=== PATIENT | male | born 1930 | race Two or more races ===

== ENCOUNTER 2017-03-14 21:08 | Inpatient (IN) | payer OTHER ==
--- NOTE | 2017-03-14 21:27 | CPEKG ---
Heart Rate: 93 RR Interval: 645 P-R Interval: 152 QRSD Interval: 126 QT Interval: 376 QTC Interval: 468 P [place]: 52 QRS [place]: -44 T Wave [place]: 21 EKG Severity - ABNORMAL ECG - EKG Impression: SINUS RHYTHM EKG Impression: VENTRICULAR PREMATURE COMPLEX EKG Impression: RIGHT BUNDLE BRANCH BLOCK Electronically Signed By: Nav Velazquez 14-Mar-2017 23:13:29
[2017-03-14] MEDS ORDERED: NS 500 ML IV ONE (21:29)
[2017-03-14] MEDS ORDERED: ASPIRIN 81 MG CHEWABLE TAB PO ONE (21:29)
[2017-03-14 21:43] LABS: % IMMATURE GRANULYOCYTES 0.5 % (0.0-1.1); ABSOLUTE IMMATURE GRANULOCYTES 0.07 10^3/uL (0.00-0.10); ADD DIFF? NO; ADD MORPH? NO; ADD SCAN? NO; ATYPICAL LYMPHOCYTE FLAG 0 (0-99); FRAGMENT RBC FLAG 0 (0-99); HEMATOCRIT 42.4 % (40.0-51.0); HEMOGLOBIN 14.8 g/dL (13.7-17.5); LEFT SHIFT FLG 10 (0-99); LIPEMIA HEMOLYSIS FLAG 90 (0-99); MEAN CELL HEMOGLOBIN 30.1 pg (27.9-34.1); MEAN CELL HEMOGLOBIN CONCENTR. 34.9 g/dL (32.4-36.7); MEAN CELL VOLUME 86.4 fL (81.5-99.8); MEAN PLATELET VOLUME 11.6 fL (8.7-11.7); PLATELET CLUMPS FLAG 20 (0-99); PLATELET COUNT 132 10^3/uL (150-400); RED BLOOD CELL COUNT 4.91 10^6/uL (4.40-6.38)
[2017-03-14 21:52] LABS: INR 1.09 (0.83-1.16)
[2017-03-14 21:53] LABS: APTT 26.6 SEC (23.0-38.0)
[2017-03-14 21:58] LABS: ANION GAP 11 mEq/L (8-16); CALCIUM 9.6 mg/dL (8.5-10.4); CARBON DIOXIDE 22 mEq/l (22-31); CHLORIDE 103 mEq/L (97-110); CREATININE 0.9 mg/dL (0.7-1.3); GLOMERULAR FILTRATION RATE > 60; GLUCOSE 161 mg/dL (70-100); POTASSIUM 3.5 mEq/L (3.5-5.2); SODIUM 136 mEq/L (134-144)
[2017-03-14] MEDS ORDERED: AZITHROMYCIN IV 500 MG in D5W 250 ML IV ONE (22:07)
--- NOTE | 2017-03-14 22:07 | EDPHY ---
H & P Time Seen by Provider: 03/14/17 21:29 HPI/ROS: HPI Chest pain. 86-year-old male by private vehicle with family. Patient has been complaining to his of left-sided and central chest discomfort which she describes as a cramping like pain which comes on intermittently. This has been present since yesterday evening. Worsening today. No previous history of coronary artery disease. No cough. Denies shortness of breath. ROS: Constitutional: No fever, no chills. No weakness. Eyes: No discharge. No changes in vision. ENT: No sore throat. No nasal congestion or rhinorrhea. Respiratory: As above. No shortness of breath. Cardiac: No chest pain, no palpitations. Gastrointestinal: No abdominal pain, no vomiting, no diarrhea. Genitourinary: No hematuria. No dysuria or increased frequency with urination. Musculoskeletal: No back pain. No neck pain. No myalgias or arthralgias. Skin: No rashes. Neurological: No headache. No focal weakness or altered sensation. Past medical history: Appendectomy. No prescription medications. [facility] but has not seen a primary care physician in many years. Social history: Nonsmoker. He lives with his . His daughters are in the room with him. No alcohol. Limited ambulation with a walker. Physical Exam: General Appearance: Alert, no distress. He feels warm. Thin, small in stature. This patient is responding to questions appropriately and in full sentences. This patient appears well-hydrated and well-nourished. Eyes: Pupils equal and round no pallor or injection. No lid edema, erythema or injection. Respiratory: There are no retractions, lungs are clear to auscultation anteriorly with good air movement bilaterally. Cardiovascular: Regular rate and rhythm. No murmur appreciated. Gastrointestinal: Abdomen is soft and nontender, no masses, bowel sounds normal. No focal tenderness at McBurney's point. No Dhaliwal sign. Neurological: Motor sensory function is grossly intact. Cranial nerves are normal. Skin: Warm and dry, no rashes. Musculoskeletal: Neck is supple and nontender. Extremities are symmetrical. All joints range without pain or impingement. Psychiatric: No agitation. No depression. Database: EKG: EKG time is 9:26 p.m.; EKG shows a sinus rhythm with underlying right bundle branch block ventricular rate of 93 The [place], QT intervals are within normal limits. PVC noted. There are no ST-T wave changes indicative of ischemic or injury pattern. No evidence of right heart strain. Interpreted by me. Imaging: Chest x-ray PA and lateral; the cardiac mediastinal silhouette is unremarkable. No evidence of pneumothorax. Probable left upper lobe pneumonia No acute cardiopulmonary disease process noted. Interpreted by me. Procedures: Emergency department course: IV placed. Patient placed on a manager monitoring. He was given 324 mg of chewed aspirin. Vital signs reviewed. Borderline febrile. He was started on IV normal saline with 500 cc to be given over an hour. After I reviewed the results of his chest x-ray and in concert with his leukocytosis, I will treat him for pneumonia. Blood cultures were taken. Was started on IV azithromycin and ceftriaxone in the emergency department for treatment of community-acquired pneumonia. 10:50 p.m., patient re-evaluated. Resting comfortably at this time. Results of diagnostic test discussed with the patient and family. Plan for treatment of pneumonia and admission discussed with them. All of her questions were answered. 10:55 p.m., discussed case with hospitalist. Patient accepted for admission by Dr. Liu. Patient admitted in stable condition. Differential Diagnosis: The differential diagnosis on this patient includes but is not limited to acute coronary syndrome, pneumothorax, pneumonia. This represents a partial list of diagnoses considered. These considerations are based on history, physical exam , past history, reassessment and diagnostic testing. Smoking Status: Never smoked Constitutional: Initial Vital Signs Temperature (C) 37.3 C 03/14/17 21:24 Heart Rate 93 03/14/17 21:24 Respiratory Rate 18 03/14/17 21:24 Blood Pressure 112/61 03/14/17 21:24 O2 Sat (%) 91 L 03/14/17 21:24 O2 Delivery Mode Nasal Cannula O2 (L/minute) 2 Allergies/Adverse Reactions: No Known Allergies Allergy (Unverified 03/14/17 21:37) Home Medications: Medication Instructions Recorded Herbals/Supplements -Info Only 1 ea PO DAILY 03/15/17 Ibuprofen [Motrin (*)] 400 mg PO HS 03/15/17 Multivitamins [Multivitamin (*)] 1 each PO DAILY 03/15/17 [place]-3 Fatty Acids [Fish Oil 1000 1,000 mg PO DAILY 03/15/17 mg (*)] Medical Decision Making - Data Points Laboratory Results: Laboratory Results 03/14/17 21:30 03/14/17 21:30 Medications Given: Discontinued Medications Aspirin (Aspirin) 324 mg PO EDNOW ONE Stop: 03/14/17 21:30 Last Admin: 03/14/17 23:18 Dose: 324 mg Sodium Chloride (Ns) 500 mls @ 1,000 mls/hr IV ONCE ONE PRN Reason: Protocol Stop: 03/14/17 21:58 Last Admin: 03/14/17 23:18 Dose: 500 mls Azithromycin 500 mg/ Dextrose 255 mls @ 255 mls/hr IV EDNOW ONE PRN Reason: Protocol Stop: 03/14/17 23:06 Last Admin: 03/14/17 23:55 Dose: 255 mls Ceftriaxone Sodium/Dextrose (Rocephin 1 Gm (Premix)) 50 mls @ 100 mls/hr IV EDNOW ONE PRN Reason: Protocol Stop: 03/14/17 22:36 Last Admin: 03/14/17 23:10 Dose: 50 mls Azithromycin 500 mg/ Dextrose 255 mls @ 255 mls/hr IV DAILY [place] PRN Reason: Protocol Stop: 04/14/17 08:59 Last Admin: 03/15/17 10:01 Dose: 255 mls Departure - Departure Disposition: [facility] In[facility] Acute Clinical Impression: Chest pain, Pneumonia
[2017-03-14 22:10] LABS: CREATINE KINASE-MB FRACTION 0.37 ng/mL (0-3.19); TROPONIN I < 0.012 ng/mL (0-0.034)
[2017-03-14] MEDS ORDERED: ONDANSETRON 4 MG/2 ML VIAL IVP PRN (23:36)
[2017-03-14] MEDS ORDERED: HYDROCODONE/APAP 5/325 TAB PO PRN (23:36)
[2017-03-14] MEDS ORDERED: ACETAMINOPHEN 325 MG TAB PO PRN (23:36)
[2017-03-14] MEDS ORDERED: ALBUTEROL 3 ML DEYVIAL IH PRN (23:36)
[2017-03-14] MEDS ORDERED: ONDANSETRON DISINTEGRATING 4 MG TAB PO PRN (23:36)
[2017-03-14] MEDS ORDERED: QUEtiapine FUMARATE 25 MG TAB PO PRN (23:42)
[2017-03-14] MEDS ORDERED: NS 1,000 ML IV SCH (23:45)
--- NOTE | 2017-03-15 03:36 | PDGENHP ---
History and Physical - Chief Complaint chest pain - History of Present Illness Patient is an 86 year old male with dementia, hyperlipidemia, osteoarthritis who was brought to the ED by his family for complaint of L sided chest pain. For the past 2-3 days, patient has had decreased appetite, generalized weakness and an intermittent cough. Over the past day, patient has also been complaining of sharp, L lower chest pain, occurring intermittently, not associated with nausea, vomiting, palpitations. Family has also noted that he appeared somewhat more confused than his baseline today, so they brought him to the ED for further evaluation. On arrival to the ED, patient was afebrile, hemodynamically stable, slightly hypoxic on room air. Labs revealed leukocytosis, normal BMP, negative initial troponin. EKG was nonischemic. CXR then revealed left upper lobe infiltrate concerning for acute pneumonia. He was cultured, given IVF hydration and initiated on antibiotics. History Information - Allergies/Home Medication List Allergies/Adverse Reactions: No Known Allergies Allergy (Unverified 03/14/17 21:37) Home Medications: NK [No Known Home Meds] 03/14/17 [Last Taken Unknown] I have personally reviewed and updated: family history, medical history, social history, surgical history - Past Medical History Additional medical history: Dementia. Hyperlipidemia. Osteoarthritis - Surgical History Additional surgical history: Appendectomy - Family History Positive for: non-pertinent - Social History Smoking Status: Never smoked Alcohol Use: None Drug Use: None Additional social history: Patient originally from [place], lives in [place] with his , two daughters live nearby. Review of Systems ROS: 10pt was reviewed & negative except for what was stated in HPI & below Physical Exam Temp Pulse Resp BP Pulse Ox 37.7 C 74 16 123/61 H 96 03/15/17 00:31 03/15/17 00:31 03/15/17 00:31 03/15/17 00:31 03/15/17 00:31 O2 (L/minute) 2 Constitutional: no apparent distress, appears nourished, not in pain Eyes: PERRL, anicteric sclera, EOMI Ears, Nose, Mouth, Throat: moist mucous membranes, hearing normal, ears appear normal, no oral mucosal ulcers Cardiovascular: regular rate and rhythym, no murmur, rub, or gallop, pulses symmetric bilaterally, No JVD, No edema Peripheral Pulses: 2+: dorsalis-pedis (R), dorsalis-pedis (L) Respiratory: no respiratory distress, no rales or rhonchi, clear to auscultation Gastrointestinal: normoactive bowel sounds, soft, non-tender abdomen, no palpable masses, No tenderness, No guarding, No rebound Genitourinary: no bladder fullness, no bladder tenderness Skin: warm, normal color, no rashes or abrasions, no fluctuance, no induration, No mottled Musculoskeletal: full muscle strength, no muscle tenderness, normal joint ROM, no joint effusions Neurologic: AAOx3, sensation intact bilaterally, CN II-XII Intact, No weakness, No numbness, No facial droop Psychiatric: interacting appropriately, not anxious, not encephalopathic, thought process linear Lab Data & Imaging Review 03/14/17 21:30 03/14/17 21:30 WBC 14.39 10^3/uL (3.80-9.50) H 03/14/17 21:30 RBC 4.91 10^6/uL (4.40-6.38) 03/14/17 21:30 Hgb 14.8 g/dL (13.7-17.5) 03/14/17 21:30 Hct 42.4 % (40.0-51.0) 03/14/17 21:30 MCV 86.4 fL (81.5-99.8) 03/14/17 21:30 MCH 30.1 pg (27.9-34.1) 03/14/17 21:30 MCHC 34.9 g/dL (32.4-36.7) 03/14/17 21:30 RDW 13.0 % (11.5-15.2) 03/14/17 21:30 Plt Count 132 10^3/uL (150-400) L 03/14/17 21:30 MPV 11.6 fL (8.7-11.7) 03/14/17 21:30 Neut % (Auto) 85.0 % (39.3-74.2) H 03/14/17 21:30 Lymph % (Auto) 6.5 % (15.0-45.0) L 03/14/17 21:30 [place] % (Auto) 7.3 % (4.5-13.0) 03/14/17 21:30 Eos % (Auto) 0.3 % (0.6-7.6) L 03/14/17 21:30 Baso % (Auto) 0.4 % (0.3-1.7) 03/14/17 21:30 Nucleat RBC Rel Count 0.0 % (0.0-0.2) 03/14/17 21:30 Absolute Neuts (auto) 12.24 10^3/uL (1.70-6.50) H 03/14/17 21:30 Absolute Lymphs (auto) 0.93 10^3/uL (1.00-3.00) L 03/14/17 21:30 Absolute Monos (auto) 1.05 10^3/uL (0.30-0.80) H 03/14/17 21:30 Absolute Eos (auto) 0.04 10^3/uL (0.03-0.40) 03/14/17 21:30 Absolute Basos (auto) 0.06 10^3/uL (0.02-0.10) 03/14/17 21:30 Absolute Nucleated RBC 0.00 10^3/uL (0-0.01) 03/14/17 21:30 Immature Gran % 0.5 % (0.0-1.1) 03/14/17 21:30 Immature Gran # 0.07 10^3/uL (0.00-0.10) 03/14/17 21:30 PT 14.0 SEC (12.0-15.0) 03/14/17 21:30 INR 1.09 (0.83-1.16) 03/14/17 21:30 APTT 26.6 SEC (23.0-38.0) 03/14/17 21:30 Sodium 136 mEq/L (134-144) 03/14/17 21:30 Potassium 3.5 mEq/L (3.5-5.2) 03/14/17 21:30 Chloride 103 mEq/L (97-110) 03/14/17 21:30 Carbon Dioxide 22 mEq/l (22-31) 03/14/17 21:30 Anion Gap 11 mEq/L (8-16) 03/14/17 21:30 BUN 20 mg/dL (7-23) 03/14/17 21:30 Creatinine 0.9 mg/dL (0.7-1.3) 03/14/17 21:30 Estimated GFR > 60 03/14/17 21:30 Glucose 161 mg/dL (70-100) H 03/14/17 21:30 Calcium 9.6 mg/dL (8.5-10.4) 03/14/17 21:30 Creatine Kinase 26 IU/L (0-224) 03/14/17 21:30 CK-MB (CK-2) Fraction 0.37 ng/mL (0-3.19) 03/14/17 21:30 Troponin I < 0.012 ng/mL (0-0.034) 03/14/17 21:30 Visualized and Interpreted Chest x-ray results: Yes Chest X-Ray results: infiltrate (L upper lobe infiltrate) Visualized and Interpreted EKG results: Yes EKG additional interpertation: RBBB, sinus rhythm Assessment & Plan Assessment: Patient is an 86 year old with dementia, HLD who presents to the ED with complaint of chest pressure, cough and generalized weakness. ED evaluation reveals nonischemic EKG, negative initial troponin and CXR concerning for upper lobe infiltrate consistent with acute community acquired pneumonia. Plan: # acute hypoxic respiratory failure Patient slightly hypoxic on room air, CXR reveals acute infiltrate in ODIN and leukocytosis on labs is consistent with acute community acquired pneumonia. Will continue antibiotics, supplemental O2 prn. - f/u blood cultures, obtain sputum culture - check legionella, strep antigen - cont ceftriaxone/azithromycin # chest pain Patient's description of the pain is atypical for ACS, likely related to above process. Initial troponin and EKG are also nonischemic. Will continue to monitor serial troponins, EKG and check TTE in AM. # acute encephalopathy, chronic dementia Patient's family feel patient has become somewhat more confused over the past 1 day. Likely metabolic encephalopathy related to acute infection. No focal deficits. Will monitor MS, obtain PT/OT and continue treatment for acute infection. # dispo: admit to inpatient service for likely > 2MN stay # gen: regular diet DVT ppx: lovenox Full code
[2017-03-15] MEDS ORDERED: AZITHROMYCIN IV 500 MG in D5W 250 ML IV SCH (09:00)
--- NOTE | 2017-03-15 09:52 | CPEKG ---
Heart Rate: 63 RR Interval: 952 P-R Interval: 172 QRSD Interval: 130 QT Interval: 436 QTC Interval: 447 P [place]: 60 QRS [place]: 30 T Wave [place]: 49 EKG Severity - ABNORMAL ECG - EKG Impression: SINUS RHYTHM EKG Impression: RIGHT BUNDLE BRANCH BLOCK Electronically Signed By: Tawanda Medina 15-Mar-2017 16:48:06
[2017-03-15] MEDS: ENOXAPARIN 40 MG/0.4 ML SYR SC SCH (10:01)
[2017-03-15 15:15] LABS: % IMMATURE GRANULYOCYTES 0.3 % (0.0-1.1); ABSOLUTE IMMATURE GRANULOCYTES 0.03 10^3/uL (0.00-0.10); ADD DIFF? NO; ADD MORPH? NO; ADD SCAN? NO; ATYPICAL LYMPHOCYTE FLAG 10 (0-99); FRAGMENT RBC FLAG 0 (0-99); HEMATOCRIT 35.9 % (40.0-51.0); HEMOGLOBIN 12.4 g/dL (13.7-17.5); LEFT SHIFT FLG 0 (0-99); LIPEMIA HEMOLYSIS FLAG 90 (0-99); MEAN CELL HEMOGLOBIN 29.9 pg (27.9-34.1); MEAN CELL HEMOGLOBIN CONCENTR. 34.5 g/dL (32.4-36.7); MEAN CELL VOLUME 86.5 fL (81.5-99.8); MEAN PLATELET VOLUME 12.1 fL (8.7-11.7); PLATELET CLUMPS FLAG 0 (0-99); PLATELET COUNT 106 10^3/uL (150-400); RED BLOOD CELL COUNT 4.15 10^6/uL (4.40-6.38)
--- NOTE | 2017-03-15 15:21 | HOSPPROG ---
Hospitalist Progress Note Assessment/Plan: * possible community-acquired pneumonia * He did have elevated white blood cell count * Repeat chest x-ray personally viewed interpreted favoring atelectasis per Radiology * Will continue antibiotics go and repeat CBC in the morning * chest pain * Resolved * EKG personally viewed interpreted shows right bundle branch block * Will check another troponin in the morning but since he is asymptomatic doubt acute coronary syndrome * severe dementia Subjective: Chest pain is resolved. No shortness of breath Objective: Vital Signs Temp Pulse Resp BP Pulse Ox 36.7 C 62 20 124/54 H 91 L 03/15/17 08:00 03/15/17 08:00 03/15/17 08:00 03/15/17 08:00 03/15/17 08:00 03/14/17 03/15/17 03/16/17 05:59 05:59 05:59 Intake Total 1050 Balance 1050 PT 14.0 SEC (12.0-15.0) 03/14/17 21:30 INR 1.09 (0.83-1.16) 03/14/17 21:30 - Physical Exam Constitutional: no apparent distress, appears nourished, not in pain Eyes: anicteric sclera, EOMI Ears, Nose, Mouth, Throat: moist mucous membranes, hearing normal, ears appear normal Cardiovascular: regular rate and rhythym, no murmur, rub, or gallop Respiratory: no respiratory distress, no rales or rhonchi, clear to auscultation Gastrointestinal: normoactive bowel sounds, soft, non-tender abdomen, no palpable masses Skin: warm Neurologic: AAOx3 Psychiatric: interacting appropriately, not anxious, not encephalopathic, thought process linear ICD10 Worksheet Patient Problems: Problems Problem Status Onset Chest pain Acute Pneumonia Acute
[2017-03-15 15:28] LABS: INR 1.2 (0.83-1.16); PROTIME(PATIENT) 15.2 SEC (12.0-15.0)
[2017-03-15 15:29] LABS: APTT 39.4 SEC (23.0-38.0)
[2017-03-15 15:44] LABS: ANION GAP 7 mEq/L (8-16); CALCIUM 8.5 mg/dL (8.5-10.4); CARBON DIOXIDE 22 mEq/l (22-31); CHLORIDE 107 mEq/L (97-110); CREATININE 0.7 mg/dL (0.7-1.3); GLOMERULAR FILTRATION RATE > 60; GLUCOSE 85 mg/dL (70-100); MAGNESIUM 1.9 mg/dL (1.6-2.3); POTASSIUM 3.6 mEq/L (3.5-5.2); SODIUM 136 mEq/L (134-144)
[2017-03-15 15:55] LABS: TROPONIN I < 0.012 ng/mL (0-0.034)
[2017-03-15] MEDS ORDERED: IBUPROFEN 200 MG TAB PO SCH (21:00)
[2017-03-16 06:42] LABS: % IMMATURE GRANULYOCYTES 0.4 % (0.0-1.1); ABSOLUTE IMMATURE GRANULOCYTES 0.03 10^3/uL (0.00-0.10); ADD DIFF? NO; ADD MORPH? NO; ADD SCAN? NO; ATYPICAL LYMPHOCYTE FLAG 0 (0-99); FRAGMENT RBC FLAG 0 (0-99); HEMATOCRIT 38.4 % (40.0-51.0); HEMOGLOBIN 13.1 g/dL (13.7-17.5); LEFT SHIFT FLG 0 (0-99); LIPEMIA HEMOLYSIS FLAG 90 (0-99); MEAN CELL HEMOGLOBIN 29.9 pg (27.9-34.1); MEAN CELL HEMOGLOBIN CONCENTR. 34.1 g/dL (32.4-36.7); MEAN CELL VOLUME 87.7 fL (81.5-99.8); MEAN PLATELET VOLUME 11.9 fL (8.7-11.7); PLATELET CLUMPS FLAG 0 (0-99); PLATELET COUNT 114 10^3/uL (150-400); RED BLOOD CELL COUNT 4.38 10^6/uL (4.40-6.38)
[2017-03-16 07:09] LABS: ALANINE AMINOTRANSFERASE 27 IU/L (21-72); ALBUMIN 2.8 g/dL (3.5-5.0); ALKALINE PHOSPHATASE 65 IU/L (38-126); ANION GAP 9 mEq/L (8-16); ASPARTATE AMINOTRANSFERASE 23 IU/L (17-59); BILIRUBIN,TOTAL 0.5 mg/dL (0.1-1.4); CALCIUM 9.1 mg/dL (8.5-10.4); CARBON DIOXIDE 22 mEq/l (22-31); CHLORIDE 107 mEq/L (97-110); CREATININE 0.8 mg/dL (0.7-1.3); GLOMERULAR FILTRATION RATE > 60; GLUCOSE 86 mg/dL (70-100); POTASSIUM 3.7 mEq/L (3.5-5.2); SODIUM 138 mEq/L (134-144); TOTAL PROTEIN 5.9 g/dL (6.3-8.2)
[2017-03-16 08:16] VITALS: PULSE 66; RESP 16; TEMP 97.3; O2SAT 95
[2017-03-16 08:17] VITALS: BP 133/89
[2017-03-16] MEDS ORDERED: AZITHROMYCIN 250 MG TAB PO SCH (09:00)
[2017-03-16] MEDS: ENOXAPARIN 40 MG/0.4 ML SYR SC SCH (09:55)
--- NOTE | 2017-03-16 10:53 | GDS ---
[f rep st] DISCHARGE SUMMARY DISCHARGE DIAGNOSES: 1. Left lower lobe pneumonia. 2. Chest pain secondary to above. 3. Dementia. HISTORY: This is an 86-year-old male who came in with chest pain. HOSPITAL COURSE: The patient had a nonischemic EKG and negative troponins. His initial chest x-ray suggested left lower lobe pneumonia, and repeat chest x-ray, even though being read as atelectasis, also suggests pneumonia. Clinically, he seems to have pneumonia. He did have a little bit of coug h and had some crackles in the left base. He has improved with antibiotics, and his white count has normalized. He will be discharged home on several more days to complete a 7-day course of antibiot ics. DISPOSITION: Home. DISCHARGE MEDICATIONS: He is to resume his home medicines. In addition, he will be given Omnicef a nd azithromycin for 4 more days. FOLLOWUP INSTRUCTIONS: He is instructed to follow up with his primary care doctor as needed. TIME SPENT: Greater than 30 minutes was spent on discharge. /[id number]/MODL
== END 2017-03-16 12:13 | disposition home or self-care (01) | DRG 193 ==
LOC: F3E 03-15 00:20
PROVIDERS: ADMIT Internal Medicine; ATTEND Internal Medicine
DX: J18.9 Pneumonia, unspecified organism (principal); J96.01 Acute respiratory failure with hypoxia; G93.41 Metabolic encephalopathy; F03.90 Unspecified dementia, unspecified severity, without behavioral disturbance, psychotic disturbance, mood disturbance, and anxiety
CPT/HCPCS: 96365; J0456; J0696; J1650

== ENCOUNTER 2017-10-20 12:53 | Inpatient (IN) | payer SELFPAY ==
[2017-10-20] MEDS ORDERED: NS 1,000 ML IV ONE (13:04)
--- NOTE | 2017-10-20 13:15 | CPEKG ---
Heart Rate: 110 RR Interval: 545 P-R Interval: 132 QRSD Interval: 108 QT Interval: 364 QTC Interval: 493 P [place]: 80 QRS [place]: -68 T Wave [place]: 17 EKG Severity - ABNORMAL ECG - EKG Impression: SINUS TACHYCARDIA EKG Impression: IRBBB AND LPFB EKG Impression: LOW VOLTAGE IN FRONTAL LEADS EKG Impression: BORDERLINE PROLONGED QT INTERVAL Electronically Signed By: Nav Velazquez 20-Oct-2017 15:49:32
--- NOTE | 2017-10-20 13:18 | EDPHY ---
H & P HPI/ROS: HPI Weakness. 87-year-old male by ambulance from home. He is accompanied by his 2 daughters who are power of plug saw operator. Daughter's report the patient has been getting very weak unable to eat or drink for the last several days to 1 week. They report that he has been bed ridden. They carry him from place to place with in their house. He has been in the same depends diaper for at least the last 3-4 days. He was seen at [facility] in the recent past and he and his daughters were told that there was nothing seriously wrong with him. They deny that he has any significant chronic underlying disease. The patient is not responding to questioning. He is staring straight ahead. He will track you intermittently. History and review of systems obtained through daughters. ROS: Constitutional: No fever, no chills. As above. Eyes: No discharge. No changes in vision. ENT: No sore throat. No nasal congestion or rhinorrhea. Respiratory: No cough. No shortness of breath. Cardiac: No chest pain, no palpitations. Gastrointestinal: No abdominal pain, no vomiting, no diarrhea. Anorexia. Genitourinary: No hematuria. No dysuria or increased frequency with urination. Musculoskeletal: No back pain. No neck pain. No myalgias or arthralgias. Skin: No rashes. Neurological: No headache. No focal weakness or altered sensation. Past medical history: Dementia, hyperlipidemia, osteoarthritis. Admitted to our hospital in mid February of 2017 for pneumonia. [facility]. Social history: Nonsmoker. From [place] originally. Has been living with his 2 daughters. No alcohol. Thai-speaking only. Physical Exam: General Appearance: Awake, noncommunicative, cachectic. Very thin and wasted. Eyes: Pupils equal and round no pallor or injection. Cataract bilaterally. No lid edema, erythema or injection. ENT, Mouth: Mucous membranes are moist. No thrush. The pharyngeal tissues are unremarkable. No edema or swelling. No asymmetry suggestive of abscess. No erythema or exudates. Respiratory: Moderate contractions, lungs are clear to auscultation anteriorly with good air movement bilaterally. No tachypnea. Cardiovascular: Regular rate and rhythm. Heart sounds distant. Tachycardia. No murmur appreciated. Gastrointestinal: Abdomen is soft and nontender, no masses, bowel sounds normal. No focal tenderness at McBurney's point. No Dhaliwal sign. Neurological: Motor sensory function is grossly intact has been baseline according to the daughters. However, the patient does not follow commands. Cranial nerves appear grossly normal. Skin: Warm and dry, no rashes. Skin ulcerations noted over sacrum and left iliac crest. Musculoskeletal: Neck is supple and nontender. Extremities are symmetrical. All joints range without apparent pain or impingement. Psychiatric: No agitation. No depression. Database: EKG: EKG time is 1:13 p.m.; EKG shows a sinus tachycardia with a ventricular rate of 110. Right bundle branch block noted. Left posterior fascicular block noted. Low voltage. The CO, QT intervals are within normal limits. There are no ST-T wave changes indicative of ischemic or injury pattern. No evidence of right heart strain. Interpreted by me. Imaging: Chest x-ray AP portable; the cardiac mediastinal silhouette is unremarkable. Diffuse airway disease, patchy bilateral lower lobe pneumonia. No other acute cardiopulmonary disease process noted. Interpreted by me. CT scan of head without contrast; age-related changes only, sinusitis and cerumen in ear canals. Results were discussed with staff radiologist Dr. Yifan Stern. Procedures: Emergency department course: IV placed x2, vital signs reviewed, blood pressure 94/70, heart rate 112, pulse oximetry 94% on 5 L by face mask oxygen. Axillary temperature 37.7degrees. Valencia catheter will be placed. He will be started on IV normal saline with 1 L to be given initially. Sepsis protocol initiated. 1:10 p.m., with barrel filler, myself and his nurse Maira communicated with his 2 daughters who are present at the bedside regarding this patient's care. Care measures including CPR, intubation and central line placement were discussed in detail with them with her full understanding. They request the patient be a DNR and DNI. I explained to them that we would do testing for infection, treat him medically and keep him comfortable. In my professional opinion they fully understood the contents and meeting of this conversation. 1:35 p.m., patient's initial venous lactate 4.7, severe sepsis protocol initiated with 30 mL/kilogram fluid bolus and repeat lactate. 1:50 p.m., chest x-ray evaluated. Patient started on all IV ceftriaxone and IV azithromycin for treatment community-acquired pneumonia. This will cover your track infection pathogens as well. Patient significantly high per day treatment. This is being treated with volume repletion as above with severe sepsis protocol. 3:00 p.m., patient was re-evaluated. Vital signs currently blood pressure 119/ 66, heart rate 96, pulse oximetry 94% on 5 L by face mask. Valencia catheter in place. Initial output nothing. He is now making urine. He arouses to voice. He has received his antibiotics. I am starting him on additional 1 L of IV normal saline secondary to his severe hypernatremia and dehydration. He has already received a 30 mL/kilogram fluid bolus. Hospitalist paged. 3:10 p.m., spoke with on-call hospitalist. Patient accepted for admission by Dr. Bill. Case discussed in detail with Dr. Bill. 4:00 p.m., Dr. Bill is at the bedside with the patient. Patient admitted to the step-down unit in stable condition. Differential Diagnosis: The differential diagnosis on this patient includes but is not limited to urosepsis, pneumonia, chronic disease, AIDS, malignancy. This represents a partial list of diagnoses considered. These considerations are based on history , physical exam, past history, reassessment and diagnostic testing. Smoking Status: Never smoked Constitutional: Initial Vital Signs Temperature (C) 37.7 C 10/20/17 13:16 Heart Rate 114 H 10/20/17 13:16 Respiratory Rate 22 H 10/20/17 13:16 Blood Pressure 94/70 L 10/20/17 13:16 O2 Sat (%) 81 L 10/20/17 13:16 O2 Delivery Mode Oxymask Allergies/Adverse Reactions: No Known Allergies Allergy (Unverified 03/14/17 21:37) Home Medications: Medication Instructions Recorded Ibuprofen [Motrin (*)] 200 mg PO TID PRN 10/20/17 Medical Decision Making - Diagnostics Imaging Results: Imaging Impressions Chest X-Ray 10/20/17 13:05 Impression: Airways disease with suspect superimposed patchy bilateral lower lung zone pneumonia. If confirmation of pneumonia is important, then consider noncontrast chest CT. Head CT 10/20/17 14:14 Impression: 1. Cerebral atrophy without any acute brain parenchymal abnormality identified. 2. Acute left maxillary sinusitis 3. Cerumen in the right external auditory canal 4. Nonacute mass in the posterior left nasal cavity. Results discussed with Dr. Velazquez at 3:19 PM General information for patients regarding this examination can be found at [email or web address]. If you have questions or comments about this report, please contact me at [phone] (hospital) or [phone] (cell). - Data Points Laboratory Results: Laboratory Results 10/20/17 13:02 10/20/17 12:45 10/20/17 10/20/17 10/20/17 15:00 15:00 13:02 WBC RBC Hgb POC Hgb Hct POC Hct MCV MCH MCHC RDW Plt Count MPV Neut % (Auto) Lymph % (Auto) [place] % (Auto) Eos % (Auto) Baso % (Auto) Nucleat RBC Rel Count Absolute Neuts (auto) Absolute Lymphs (auto) Absolute Monos (auto) Absolute Eos (auto) Absolute Basos (auto) Absolute Nucleated RBC Immature Gran % Seg Neutrophils % Band Neutrophils % Lymphocytes % Monocytes % Immature Gran # Absolute Seg Neuts Absolute Band Neuts Absolute Lymphocytes Absolute Monocytes RBC/WBC/PLT Morphology Platelet Estimate PT 16.2 SEC H SEC (12.0-15.0) INR 1.28 H (0.83-1.16) APTT 27.5 SEC SEC (23.0-38.0) VBG Lactic Acid 4.0 mmol/L H mmol/L Pending (0.7-2.1) POC Sodium Sodium POC Potassium Potassium POC Chloride Chloride Carbon Dioxide Anion Gap POC BUN BUN Creatinine POC Creatinine Estimated GFR Glucose POC Glucose Calcium Total Bilirubin Troponin I 10/20/17 10/20/17 10/20/17 13:02 13:02 12:52 WBC 8.23 10^3/uL 10^3/uL (3.80-9.50) RBC 5.55 10^6/uL 10^6/uL (4.40-6.38) Hgb 17.0 g/dL g/dL (13.7-17.5) POC Hgb 17.0 gm/dL gm/dL (13.7-17.5) Hct 53.7 % H % (40.0-51.0) POC Hct 50 % % (40-51) MCV 96.8 fL fL (81.5-99.8) MCH 30.6 pg pg (27.9-34.1) MCHC 31.7 g/dL L g/dL (32.4-36.7) RDW 17.0 % H % (11.5-15.2) Plt Count 130 10^3/uL L 10^3/uL (150-400) MPV 14.3 fL H fL (8.7-11.7) Neut % (Auto) 86.7 % H % (39.3-74.2) Lymph % (Auto) 7.3 % L % (15.0-45.0) [place] % (Auto) 5.1 % % (4.5-13.0) Eos % (Auto) 0.0 % L % (0.6-7.6) Baso % (Auto) 0.7 % % (0.3-1.7) Nucleat RBC Rel Count 0.0 % % (0.0-0.2) Absolute Neuts (auto) 7.13 10^3/uL H 10^3/uL (1.70-6.50) Absolute Lymphs (auto) 0.60 10^3/uL L 10^3/uL (1.00-3.00) Absolute Monos (auto) 0.42 10^3/uL 10^3/uL (0.30-0.80) Absolute Eos (auto) 0.00 10^3/uL L 10^3/uL (0.03-0.40) Absolute Basos (auto) 0.06 10^3/uL 10^3/uL (0.02-0.10) Absolute Nucleated RBC 0.00 10^3/uL 10^3/uL (0-0.01) Immature Gran % 0.2 % % (0.0-1.1) Seg Neutrophils % 45 % % Band Neutrophils % 39 % % Lymphocytes % 11 % % Monocytes % 5 % % Immature Gran # 0.02 10^3/uL 10^3/uL (0.00-0.10) Absolute Seg Neuts 3.70 10^/uL 10^/uL (1.70-6.50) Absolute Band Neuts 3.21 10^3/uL H 10^3/uL (0.00-0.70) Absolute Lymphocytes 0.91 10^3/uL L 10^3/uL (1.00-3.00) Absolute Monocytes 0.41 10^3/uL 10^3/uL (0.30-0.80) RBC/WBC/PLT Morphology NORMAL (NORMAL) Platelet Estimate DECREASED L (ADEQ) PT INR APTT VBG Lactic Acid 4.7 mmol/L H mmol/L (0.7-2.1) POC Sodium 171 mEq/L H* mEq/L (135-145) Sodium POC Potassium 3.8 mEq/L mEq/L (3.3-5.0) Potassium POC Chloride 130 mEq/L H mEq/L (97-110) Chloride Carbon Dioxide Anion Gap POC BUN 49 mg/dL H mg/dL (7-23) BUN Creatinine POC Creatinine 1.8 mg/dL H mg/dL (0.7-1.3) Estimated GFR Glucose POC Glucose 187 mg/dL H mg/dL (70-100) Calcium Total Bilirubin Troponin I 10/20/17 12:45 WBC RBC Hgb POC Hgb Hct POC Hct MCV MCH MCHC RDW Plt Count MPV Neut % (Auto) Lymph % (Auto) [place] % (Auto) Eos % (Auto) Baso % (Auto) Nucleat RBC Rel Count Absolute Neuts (auto) Absolute Lymphs (auto) Absolute Monos (auto) Absolute Eos (auto) Absolute Basos (auto) Absolute Nucleated RBC Immature Gran % Seg Neutrophils % Band Neutrophils % Lymphocytes % Monocytes % Immature Gran # Absolute Seg Neuts Absolute Band Neuts Absolute Lymphocytes Absolute Monocytes RBC/WBC/PLT Morphology Platelet Estimate PT INR APTT VBG Lactic Acid POC Sodium Sodium 173 mEq/L H* mEq/L (135-145) POC Potassium Potassium 4.0 mEq/L mEq/L (3.5-5.2) POC Chloride Chloride 130 mEq/L H mEq/L (97-110) Carbon Dioxide 22 mEq/l mEq/l (22-31) Anion Gap 21 mEq/L H mEq/L (8-16) POC BUN BUN 52 mg/dL H mg/dL (7-23) Creatinine 1.7 mg/dL H mg/dL (0.7-1.3) POC Creatinine Estimated GFR 38 Glucose 183 mg/dL H mg/dL (70-100) POC Glucose Calcium 10.0 mg/dL mg/dL (8.5-10.4) Total Bilirubin 1.8 mg/dL H mg/dL (0.1-1.4) Troponin I 0.094 ng/mL H ng/mL (0.000-0.034) Medications Given: Discontinued Medications Sodium Chloride (Ns) 1,000 mls @ 0 mls/hr IV ONCE ONE; Wide Open PRN Reason: Protocol Stop: 10/20/17 13:05 Last Admin: 10/20/17 13:31 Dose: 1,000 mls Sodium Chloride (Ns) 1,200 mls @ 2,400 mls/hr 30 ml/kg infuse over 30 min ( 1200 ml) IV EDNOW ONE PRN Reason: Protocol Stop: 10/20/17 14:05 Last Admin: 10/20/17 14:21 Dose: 1,200 mls Azithromycin 500 mg/ Dextrose 255 mls @ 255 mls/hr IV EDNOW ONE PRN Reason: Protocol Stop: 10/20/17 14:47 Last Admin: 10/20/17 14:20 Dose: 255 mls Ceftriaxone Sodium 2 gm/ (Sterile Water) 20 mls @ 300 mls/hr IV EDNOW ONE PRN Reason: Protocol Stop: 10/20/17 13:51 Last Admin: 10/20/17 14:18 Dose: 20 mls Point of Care Test Results: 10/20/17 12:52 POC Sodium 171 H* POC Potassium 3.8 POC Chloride 130 H POC BUN 49 H POC Creatinine 1.8 H POC Glucose 187 H Departure - Departure Disposition: [facility] Inpatient Acute Clinical Impression: Sepsis, Pneumonia, Hypernatremia, Dehydration, Renal insufficiency, Elevated troponin, DNR no code (do not resuscitate) Condition: Fair
[2017-10-20 13:36] LABS: PLATELET COUNT 130 10^3/uL (150-400)
[2017-10-20] MEDS ORDERED: NS 1,200 ML IV ONE (13:36)
[2017-10-20 13:47] LABS: INR 1.28 (0.83-1.16); PROTIME(PATIENT) 16.2 SEC (12.0-15.0)
[2017-10-20] MEDS ORDERED: AZITHROMYCIN IV 500 MG in D5W 250 ML IV ONE (13:48)
[2017-10-20] MEDS ORDERED: cefTRIAXone 2 GM in STERILE WATER INJ 20 ML IV ONE (13:48)
[2017-10-20] MEDS ORDERED: ONDANSETRON 4 MG/2 ML VIAL IVP PRN (16:11)
[2017-10-20] MEDS ORDERED: ONDANSETRON DISINTEGRATING 4 MG TAB PO PRN (16:11)
[2017-10-20] MEDS ORDERED: ACETAMINOPHEN 325 MG TAB PO PRN (16:11)
[2017-10-20] MEDS ORDERED: morphINE 10 MG/0.5 ML UDSYR PO PRN (16:13)
[2017-10-20] MEDS ORDERED: SCOPOLAMINE HYDROBROMIDE 1 MG/3 DAYS PATCH TD PRN (16:13)
--- NOTE | 2017-10-20 16:20 | ASMTCMCOM ---
CM Note CM Note Notes: Pt presented to the ER today via ambulance after one week of being bed ridden, with increasing weakness. Pt is Uzbek speaking only and lives with his two daughters. Per MD notes, the daughters are his MDPOA's. The pt is originally from [place]. Pt is being admitted to the PCU for further workup and evaluation. Discharge needs remain to be determined at this time. CM will cont to follow. Current Discharge Plan: To be determined Date Signed: 10/20/2017 04:19 PM Electronically Signed By:Noa Isbell RN
--- NOTE | 2017-10-20 17:29 | GHP ---
[f rep st] HISTORY AND PHYSICAL DATE OF ADMISSION: 10/20/2017 CHIEF COMPLAINT: Altered mental status. Weakness. HISTORY OF PRESENT ILLNESS: This is an 87-year-old male who has a history of dementia, but no other significant medical problems. According to his family, over the last several months he has been decl ining. He has been getting weaker. He is not eating. He has been losing weight. He is becoming mo re confused. Over the last several days, he has stopped eating essentially, and has had some cough w ith phlegm. His mental status has also decreased, where he is unable to even register his family. Anthony paiz has been essentially bedridden for over a week. REVIEW OF SYSTEMS: Limited review of systems is obtained secondary to patient's altered mental statu s. PAST MEDICAL HISTORY: Dementia, hyperlipidemia, osteoarthritis. SOCIAL HISTORY: No smoking. Lives with his daughters. FAMILY HISTORY: Both parents are . PHYSICAL EXAMINATION: VITAL SIGNS: Afebrile, blood pressure is 116/84, heart rate 84, respiratory r ates in the upper 30s, 81% on room air. GENERAL: The patient is cachectic, chronically ill-appearin g, slightly tachypneic. HEENT: Dry mucous membranes. NECK: Supple. No thyromegaly. LUNGS: Poor effort. Scattered rhonchi bilaterally. No wheezes. CARDIOVASCULAR: Regular rate and rhythm. No murmurs or gallops. ABDOMEN: Scaphoid, quite thin, soft, nontender. EXTREMITIES: No clubbing, cya nosis, or edema. SKIN: Without rash. Dry, intact. NEURO: Tracks a little bit with his eyes, othe rwise not very responsive. LABS: Lactate is elevated at 4.7. White count is normal. Chemistry shows a sodium of 173, creatini ne 1.7, with baseline 0.8. Troponin is elevated at 0.094. Chest x-ray shows probable patchy bilater al pneumonia. ASSESSMENT: This is an 87-year-old male with dementia, who has been declining over the last several months, presenting with pneumonia, severe hypernatremia, dehydration, and acute respiratory failure. PLAN: I had an extensive discussion with daughters. They feel like he is declining. One daughter i s actually telling his other family that he is dying. He has been declining for some time, and only weighs 40 kg currently. They are aware that his prognosis is very poor, and they are electing for co mfort care measures only. We will stop the IV fluids and administer no more antibiotics. We will box ve Case Management see the patient, as well as consider hospice evaluation. He, however, does not box ve insurance, so I am not sure if there will be any benefits for him on hospice. /[id number]/MODL
--- NOTE | 2017-10-20 17:47 | PDMN ---
Medical Necessity Medical necessity: C/M review: Acute and persistent - pneumonia, severe hypernatremia, dehydration, respiratory failure, poor prognosis requiring Case management consult, ongoing comfort care only measures per family request, comorbid patient declining over lase several months, 40kg weight, dementia, hyperlipidemia, osteoarthritis. MD anticipates > 2 MN LOS for ongoing med nec for eval and TX of above.
[2017-10-20] MEDS: LORazepam 2 MG/ML INJ IVP PRN (18:00)
[2017-10-21] MEDS: LORazepam 2 MG/ML INJ IVP PRN ×3 (09:12→15:15)
--- NOTE | 2017-10-21 13:24 | ASMTCMCOM ---
CM Note CM Note Notes: Chart reviewed. Admitted with PNA and severe sepsis. Patient is now a DNR comfort care only. Family at bedside. CM available should needs arise. Date Signed: 10/21/2017 01:23 PM Electronically Signed By:Ngozi Quiroz RN
--- NOTE | 2017-10-21 17:53 | HOSPPROG ---
Hospitalist Progress Note Assessment/Plan: Assessment: 87-year-old male presents with acute on chronic encephalopathy in the setting of severe sepsis, suspected aspiration pneumonia, acute kidney injury, severe hypernatremia Plan: 1. Acute on chronic encephalopathy. The patient was cognitively and functionally failing at home, resulting in worsening responsiveness, worsening level of interactive this, all of which are an acute change from his baseline dementia, most likely secondary to the toxic effects of infection, the metabolic effects of hyponatremia and uremia -patient is currently nonresponsive, resting comfortably -counseled the patient's family that while it is unlikely that the patient can interact with them, I usually recommend the patient's family is speak and interact with them as if they can hear them during end of life care, which can help with the grieving process 2. Severe sepsis. Present on admission, evidenced by autonomic dysregulation in the setting of infection with end-organ failure notably acute kidney injury, acute encephalopathy, myocardial ischemia, lactic acidosis, Q sofa score of 2, meeting sepsis-3 criteria -status post IV antibiotics on presentation, goals of care adjusted to comfort measures, no further treatment indicated 3. Suspected aspiration pneumonia. Present on admission, chest x-ray with bilateral lower lobe airspace disease, 39% bands on CBC, suspected aspiration the setting of worsening dementia and worsening mental status -patient's increased audible respiratory sounds are most likely worsening aspiration, scopolamine patch, as needed morphine and Ativan for respiratory comfort 4. Acute kidney injury. Most likely secondary to hypovolemia and severe sepsis , most likely resulting in uremia 5. Hypernatremia. Severe, most likely secondary to free water deficit in the setting of poor oral intake in the setting of end-stage dementia and worsening encephalopathy 6. Acute metabolic acidosis. Secondary to lactic acid in the setting of severe sepsis 7. Transient myocardial ischemia. Secondary to severe sepsis, troponin 0.09 Diet. NPO Prophylaxis. Comfort measures only Code. Do not resuscitate, comfort measures only Disposition. Anticipated discharge is that the patient will likely within the next 24 hr Subjective: Counseled the patient's family regarding end of life expectations, grieving Objective: Vital Signs Temp Pulse Resp BP Pulse Ox 37.0 C 86 24 H 102/64 91 L 10/20/17 17:27 10/20/17 17:27 10/20/17 17:27 10/20/17 17:27 10/20/17 17:27 10/20/17 10/21/17 10/22/17 05:59 05:59 05:59 Intake Total 1500 Output Total 178 Balance 1322 PT 16.2 SEC (12.0-15.0) H 10/20/17 13:02 INR 1.28 (0.83-1.16) H 10/20/17 13:02 - Time Spent With Patient Time Spent with Patient: greater than 25 minutes Time Spent with Patient: Greater than 25 minutes spent on this patients care, greater than 50% of time spent counseling, educating, and coordinating care regarding the above mentioned plan. - Physical Exam Constitutional: not in pain, chronically ill appearing, cachectic, No uncomfortable Psychiatric: encephalopathic, other (Unresponsive) ICD10 Worksheet Patient Problems: Problems Problem Status Onset Chest pain Acute Pneumonia Acute Sepsis Acute Hypernatremia Acute Dehydration Acute Renal insufficiency Acute Elevated troponin Acute DNR no code (do not resuscitate) Acute
[2017-10-22 07:18] VITALS: BP 102/64; PULSE 86; RESP 24; TEMP 98.6; O2SAT 91
[2017-10-22] MEDS: LORazepam 2 MG/ML INJ IVP PRN ×2 (08:59→14:20)
[2017-10-22] MEDS ORDERED: KETOROLAC 30 MG/1 ML SDV IVP PRN (15:50)
[2017-10-22] MEDS ORDERED: D5W IV SCH (16:00)
[2017-10-22] MEDS ORDERED: LORAZEPAM IV SCH (16:00)
[2017-10-22] MEDS ORDERED: morphINE 50 MG in NS 50 ML IV SCH (16:00)
--- NOTE | 2017-10-22 16:41 | ASMTCMCOM ---
CM Note CM Note Notes: 10/22/2017 Case Management Note Met w/pt daughter requesting a letter to help with Medicaid application. [place] Medicaid employee is Gwendolyn [phone] or [phone]. Contacted Susu with [employer] to assist. Susu to assist family and contact Gwendolyn tomorrow. Case Management to follow. Date Signed: 10/22/2017 04:41 PM Electronically Signed By:Tosha Chery RN
--- NOTE | 2017-10-22 19:21 | HOSPPROG ---
Hospitalist Progress Note Assessment/Plan: Assessment: 87-year-old male presents with acute on chronic encephalopathy in the setting of severe sepsis, suspected aspiration pneumonia, E. colic bacteremia, acute kidney injury, severe hypernatremia Plan: 1. Acute on chronic encephalopathy. The patient was cognitively and functionally failing at home, resulting in worsening responsiveness, worsening level of interactive this, all of which are an acute change from his baseline dementia, most likely secondary to the toxic effects of infection, the metabolic effects of hyponatremia and uremia -patient is currently nonresponsive, resting comfortably -counseled the patient's family that pain mgmt at end of life focuses on monitoring resp symptoms, signs of discomfort -after d/w family, agree to adjust morphine to gtt, cont ativan IV prn, add toradol IV for perceived discomfort w/ fever 2. Severe sepsis. Present on admission, evidenced by autonomic dysregulation in the setting of infection with end-organ failure notably acute kidney injury, acute encephalopathy, myocardial ischemia, lactic acidosis, Q sofa score of 2, meeting sepsis-3 criteria -status post IV antibiotics on presentation, goals of care adjusted to comfort measures, no further treatment indicated 3. Suspected aspiration pneumonia. Present on admission, chest x-ray with bilateral lower lobe airspace disease, 39% bands on CBC, suspected aspiration the setting of worsening dementia and worsening mental status -patient's increased audible respiratory sounds are most likely worsening aspiration, scopolamine patch, as needed morphine and Ativan for respiratory comfort 4. Acute kidney injury. Most likely secondary to hypovolemia and severe sepsis , most likely resulting in uremia 5. Hypernatremia. Severe, most likely secondary to free water deficit in the setting of poor oral intake in the setting of end-stage dementia and worsening encephalopathy 6. Acute metabolic acidosis. Secondary to lactic acid in the setting of severe sepsis 7. Transient myocardial ischemia. Secondary to severe sepsis, troponin 0.09 8. E. coli bacteremia. POA, BCx positive, comfort measures and no Abx Diet. NPO Prophylaxis. Comfort measures only Code. Do not resuscitate, comfort measures only Disposition. Anticipated discharge is that the patient will likely within the next 24 hr Subjective: patient resting comfortably, eyes closed Objective: Vital Signs Temp Pulse Resp BP Pulse Ox 37.0 C 86 24 H 102/64 91 L 10/20/17 17:27 10/20/17 17:27 10/20/17 17:27 10/20/17 17:27 10/20/17 17:27 10/21/17 10/22/17 10/23/17 05:59 05:59 05:59 Intake Total 1500 Output Total 178 500 160 Balance 1322 -500 -160 PT 16.2 SEC (12.0-15.0) H 10/20/17 13:02 INR 1.28 (0.83-1.16) H 10/20/17 13:02 - Time Spent With Patient Time Spent with Patient: greater than 25 minutes Time Spent with Patient: Greater than 25 minutes spent on this patients care, greater than 50% of time spent counseling, educating, and coordinating care regarding the above mentioned plan. - Physical Exam Constitutional: no apparent distress, not in pain, other (aged appearing), No uncomfortable Cardiovascular: tachycardia, No irregularly irregular Respiratory: reduced air movement (shallow breathing), rhonchi (on insp bilat) Psychiatric: other (unresponsive to tactile and verbal stimuli) ICD10 Worksheet Patient Problems: Problems Problem Status Onset Chest pain Acute Pneumonia Acute Sepsis Acute Hypernatremia Acute Dehydration Acute Renal insufficiency Acute Elevated troponin Acute DNR no code (do not resuscitate) Acute
--- NOTE | 2017-10-23 14:47 | ASDISCHSUM ---
Discharge Information Plan Status: Medically Cleared to Leave: Discharge Date:10/23/2017 09:09 AM CM D/C Disposition: ADT D/C Disposition: Projected Discharge Date:10/23/2017 09:09 AM Transportation at D/C: Discharge Delay Reason: Follow-Up Date:10/23/2017 09:09 AM Discharge Slot: Final Diagnosis: Placement Information Patient Contact Information Contact Name:SANTINO Relationship: Address:[address] [facility] Work Phone: City:[place] [facility] Phone: State/Zip Code:[place] [address] Email: Financial Information Financial Class:Self-Pay Primary Plan Desc:SELF PAY Primary Plan Number: Secondary Plan Desc: Secondary Plan Number: Assessment Information [facility] Progress Note CM Note CM Note Notes: Pt presented to the ER today via ambulance after one week of being bed ridden, with increasing weakness. Pt is Sinhala speaking only and lives with his two daughters. Per MD notes, the daughters are his MDPOA's. The pt is originally from [place]. Pt is being admitted to the PCU for further workup and evaluation. Discharge needs remain to be determined at this time. CM will cont to follow. Current Discharge Plan: To be determined Date Signed: 10/20/2017 04:19 PM Electronically Signed By:Noa Isbell RN [facility] Acuity / Level of Answers: Yes Care: Did the patient have an inpatient admission? Comorbidities - select Answers: Dementia all that apply # of Emergency department Answers: 0 visits in the last 6 months Score: 6 Date Signed: 10/20/2017 04:21 PM Electronically Signed By:Noa Isbell RN [facility] CM Progress Note CM Note CM Note Notes: Chart reviewed. Admitted with PNA and severe sepsis. Patient is now a DNR comfort care only. Family at bedside. CM available should needs arise. Date Signed: 10/21/2017 01:23 PM Electronically Signed By:Ngozi Quiroz RN [facility] CM Progress Note CM Note CM Note Notes: 10/22/2017 Case Management Note Met w/pt daughter requesting a letter to help with Medicaid application. [place] Medicaid employee is Gwendolyn [phone] or [phone]. Contacted Susu with [employer] to assist. Susu to assist family and contact Gwendolyn tomorrow. Case Management to follow. Date Signed: 10/22/2017 04:41 PM Electronically Signed By:Tosha Chery RN Intervention Information
--- NOTE | 2017-10-23 21:42 | PDDCSUM ---
Discharge Summary Discharge Summary: Date of Expiration: 10/23/17 Time of Expiration: 0:55 Cause of Expiration: Severe Sepsis Discharge Diagnoses: 1. Severe Sepsis, POA 2. Acute on Chronic Encephalopathy 3. E. coli bacteremia, POA 4. Aspiration Pneumonia, POA 5. SALINA 6. Severe Hypernatremia 7. Acute metabolic acidosis 8. Transient Myocardial Ischemia Hospital Course: Mr. Conn presented w/ acute on chronic encephalopathy in setting of severe sepsis 2/2 aspiration pneumonia and resultant E. coli bacteremia. He was experiencing severe hypernatremia, SALINA, and metabolic acidosis, in the setting of failure to thrive at home. The patient 's goals of care were immediately identified as DNR and comfort measures only, and the patient was admitted to receive appropriate supportive care for symptom management, as his anticipated life expectancy was limited. The patient initially received IV Abx and IV fluids, but these were discontinued 2/2 these stated goals of care. He received IV morphine and ativan PRN, and was adjusted to IV morphine gtt + ativan bolusing on 10/22/17 2/2 respiratory discomfort. His family received end of life counseling from his hospitalist provider and the political geographer service. He also received IV toradol for fever. He comfortably on 10/23/17 at 0:55. Our condolences go out to the family of Mr. York.
== END 2017-10-23 09:09 | disposition expired | DRG 871 ==
LOC: EDUNIT# → F2W 17:15
PROVIDERS: ADMIT Internal Medicine; ATTEND Internal Medicine
DX: A41.51 Sepsis due to Escherichia coli [E. coli] (principal); R65.21 Severe sepsis with septic shock; G93.49 Other encephalopathy; J69.0 Pneumonitis due to inhalation of food and vomit; N17.9 Acute kidney failure, unspecified; E87.0 Hyperosmolality and hypernatremia; E87.2 Acidosis; I25.9 Chronic ischemic heart disease, unspecified; Z66 Do not resuscitate; Z51.5 Encounter for palliative care; E86.0 Dehydration; F03.90 Unspecified dementia, unspecified severity, without behavioral disturbance, psychotic disturbance, mood disturbance, and anxiety; E78.5 Hyperlipidemia, unspecified
CPT/HCPCS: 82947-QW; 96365; J0456; J0696; J1885; J2060